=== PATIENT | male | born 1965 | race Caucasian/White ===

== ENCOUNTER 2024-04-10 13:25 | Emergency (ER) | payer MEDICAID, SELFPAY ==
[2024-04-10] VITALS (46 sets, daily range): BP systolic 153–180; BP diastolic 82–139; PULSE 83–96; RESP 16–18; TEMP 36.5–36.8; O2SAT 93–100; BMI 24.8
--- NOTE | 2024-04-10 13:48 | ED_ITS ---
HPI - General Adult General Chief complaint: Unspecified Complaint, Adult Stated complaint: Needs blood transfusion Time Seen by Provider: 04/10/24 13:29 History of Present Illness HPI narrative: presented to ED from clinic. referred for low hgb and swollen feet. 58-year-old man presenting to the emergency department on advice of local clinic following blood work done today showing a hemoglobin of 5.3 reportedly. He does admit to being more fatigued generally for a little while. Not really short of breath than not feeling lightheaded or dizzy. No chest pain. No nausea. Has been experiencing diarrhea though not particularly darkened does not report any hematochezia. Diarrhea is thought to be related to Augmentin that he received for a tooth extraction that was done less than 10 days ago. He has actually stop taking the Augmentin. Diarrhea began fairly quickly after initiating this medication. Does not take any medications otherwise. Has been 12 years prior to today that he had seen a provider beyond the dentist as noted. Reason for going in today was the fatigue but also that he has been having some swelling in his ankles and feet over the last couple of weeks. Leg cramps as well. Due to this he did quit drinking alcohol. Seems indicate that it was not too difficult. He does continue to smoke. Does not report abdominal pain or early satiety. Have just obtained lab work done from clinic today. Looks like the only chemistries that were done was a blood glucose. Looks to have a normocytic anemia with a hemoglobin of 5.2 and hematocrit of 14.7 Related Data Home Medications ?Medication ?Instructions ?Recorded ?Confirmed No Known Home Medications 04/10/24 04/10/24 Allergies Allergy/AdvReac Type Severity Reaction Status Date / Time No Known Drug Allergies Allergy Verified 04/10/24 13:42 Review of Systems Status of ROS: Reports: 6 or more systems reviewed and unremarkable except as noted in History and below [facility] Social History Smoking Status: Current every day smoker Non-prescribed substance use: marijuana (any form) Exam Narrative: Exam Narrative: Pleasant. NAD. Smells of cigarette smoke. Cranial nerves 2-12 intact. No scl eral icterus. Oropharynx is moist. Pale mucous membranes are noted. Extraction site in right upper jaw without inflammatory changes. Heart in regular rate and rhythm maybe a little elevated rate. Lungs trace clearing end- expiratory wheeze crepitus in the upper lung right greater than left. Abdomen is soft and nontender. No masses are appreciated. No fluid wave appreciated. Extremities are well perfused. He transitions to the bed incidentally without any apparent difficulty. Lower extremities with some mild ankle edema noted. Various areas of his skin with small excoriations. Scabbed. Const: Vital Signs, click to edit/add: Vital Signs - 24 hr 04/10/24 13:39 04/10/24 15:21 04/10/24 15:22 Temperature 98.3 F Pulse Rate 88 86 Pulse Rate [Right Pulse Oximeter] 90 Respiratory Rate 18 Blood Pressure 170/105 H Blood Pressure [Ri ght Upper Arm] 153/82 H Pulse Oximetry 98 99 98 O[facility] 04/10/24 15:30 04/10/24 15:32 04/10/24 15:45 Temperature Pulse Rate 83 83 84 Pulse Rate [Right Pulse Oximeter] Respiratory Rate Blood Pressure 164/99 H Blood Pressure [Ri ght Upper Arm] Pulse Oximetry 99 99 99 Oxygen Delivery [facility] 04/10/24 16:02 04/10/24 16:02 04/10/24 16:13 Temperature Pulse Rate 86 Pulse Rate [Right Pulse Oximeter] Respiratory Rate Blood Pressure 170/104 H 170/104 H Blood Pressure [Ri ght Upper Arm] Pulse Oximetry 98 Oxygen Delivery [facility] 04/10/24 16:14 04/10/24 16:15 04/10/24 16:16 Temperature 98.3 F Pulse Rate 86 88 87 Pulse Rate [Right Pulse Oximeter] Respiratory Rate 18 Blood Pressure 170/105 H 170/105 H Blood Pressure [Ri ght Upper Arm] Pulse Oximetry 99 98 Oxygen Delivery Oh thod 04/10/24 16:17 04/10/24 16:18 04/10/24 16:31 Temperature 98.2 F Pulse Rate 89 89 Pulse Rate [Right Pulse Oximeter] Respiratory Rate 16 Blood Pressure 171/91 H 168/104 H Blood Pressure [Ri ght Upper Arm] Pulse Oximetry 99 100 100 Oxygen Delivery [facility] 04/10/24 16:33 Temperature 98.0 F Pulse Rate 84 Pulse Rate [Right Pulse Oximeter] Respiratory Rate 16 Blood Pressure 171/107 H Blood Pressure [Ri ght Upper Arm] Pulse Oximetry 99 Oxygen Delivery [facility] Documenting provider has reviewed patient's vital signs: yes Course Vital Signs Vital signs: Initial Vital Signs Temperature 98.3 F 04/10/24 13:39 Temperature Source Temporal Artery Scan 04/10/24 13:39 Pulse Rate 90 04/10/24 13:39 Respiratory Rate 18 04/10/24 13:39 Blood Pressure 153/82 H 04/10/24 13:39 Blood Pressure Mean 105 04/10/24 13:39 Blood Pressure Position Sitting 04/10/24 13:39 Pulse Oximetry 98 04/10/24 13:39 Oxygen Delivery Method Room Air 04/10/24 13:39 Vital Signs Temperature 98.3 F 04/10/24 13:39 Pulse Rate 90 04/10/24 13:39 Respiratory Rate 18 04/10/24 13:39 Blood Pressure 153/82 H 04/10/24 13:39 Pulse Oximetry 98 04/10/24 13:39 Oxygen Delivery Method Room Air 04/10/24 13:39 Temperature 98.0 F 04/10/24 16:33 Pulse Rate 84 04/10/24 16:33 Respiratory Rate 16 04/10/24 16:33 Blood Pressure 171/107 H 04/10/24 16:33 Pulse Oximetry 99 04/10/24 16:33 Oxygen Delivery Method Room Air 04/10/24 13:39 Medical Decision Making MDM Narrative Medical decision making narrative: Mr. Burciaga is understandably concerned as he is currently without insurance. He would prefer to do outpatient workup after I propose evaluations including imaging of chest abdomen and pelvis here in the emergency department; more prudent in light of smoking and drinking history and lack of cares for many years. Otherwise at a minimum should have colonoscopy. The diarrhea he is describing certainly might be related simply to the caustic/gastrointestinal effects of Augmentin or Clostridium difficile. Will attempt to obtain a stool sample. No chest or abdominal pains and no evidence of active bleeding otherwise suggests against variceal rupture. I would expect this anemia to be of longstanding duration given relatively normal vitals and for this level of hemoglobin, relatively minimal symptoms. No clear source of bleed described. Did inquire about transfusion with the infusion center but will be closing shortly. Hoping to transfer to infusion center or to [facility] for completion of transfusion. I would expect him to need 2 units. Laboratory evaluation however with numerous anomalies most worrisome is evidence of renal failure. I wonder if this was a much more recent development. And that this is potentially going to get worse very quickly. Perhaps was related to the diarrhea? Or at least the diarrhea was the precipitant. I have to think that there was some liver failure playing a role at some point. 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 Hepatorenal syndrome? Toxin related with acute tubular necrosis? Hemolytic uremic syndrome though platelets are normal. I did discuss admitting Mr. Burciaga with our hospitalist; concern expressed of other lingering possibilities without next level imaging prior to admission. I did return to discuss at least non contrasted CT imaging but Mr. Burciaga and his are clear that they wish to only receive the next important treatment, namely blood transfusion, and plan to pursue the rest outpatient after they clarify insurance. He does maintain that is continuing to urinate normally and regularly. And ever since he quit drinking his legs/feet have markedly decreased in swelling now half the size they were before perhaps. I am not sure than that further evaluation is useful including other related laboratory analysis if would not be pursuing further cares at this time. Perhaps would at least obtain a urinalysis with microscopic. They are choosing to leave following transfusion. I did express my concern that this illness is not necessarily on the downswing; that findings of renal failure may accelerate and dialysis may likely be necessary very soon. It would be best not to get to that point if possible with more urgent intervention ideally today. Now receiving 2nd unit of packed red cells. See patient discharge plan for further discussion Medical Records Medical records reviewed: Yes I reviewed the patient's medical records Lab Data Lab results reviewed: Yes I reviewed the patient's lab results Lab results narrative: Further labs in the form of glucose of 96 and CBC with differential from [facility] obtained today. White count was 7.5, hemoglobin 5.2, hematocrit 14.7, MCV 88, MCH 31, MCHC 35.4, RDW 13.9, platelets of 217 Labs: Lab Results 04/10/24 Range/Units 14:30 Hgb 4.6 L* (13.5-17.5) gm/dL INR 1.14 H (0.91-1.10) APTT 34 H (23-33) Seconds Sodium 133 L (135-149) mmol/L Potassium 5.4 H (3.6-5.1) mmol/L Chloride 99 (96-114) mmol/L Carbon Dioxide 10 L (20-32) mmol/L Anion Gap 24 H (7-15) mEq/L BUN 204 H (7-30) mg/dL Creatinine 16.5 H (0.5-1.5) mg/dL Estimated Creat Clear 5.49 Estimated GFR 3 ml/min Glucose 121 H (60-115) mg/dL Calcium 4.7 L* (8.4-10.6) mg/dL Total Bilirubin 0.4 (0.1-1.5) mg/dL Direct Bilirubin 0.4 (0.0-0.5) mg/dL AST 38 H (12-35) U/L ALT 27 (4-50) U/L Alkaline Phosphatase 76 (40-150) U/L Total Protein 7.6 (6.0-8.3) g/dL Albumin 4.8 (3.3-5.0) g/dL Ethyl Alcohol 0.01 (0.01-0.03) % Blood Type O Positive Antibody Screen NEGATIVE Crossmatch (AHG) See Detail Discharge Plan Discharge Clinical Impression: Anemia, Renal failure Patient Disposition: Home w/ Parent or Adult Condition: Stable Additional Instructions: You understand that I would like more intervention for you yet this evening with admission and further monitoring and cares as needed. I am quite concerned that you might worsen quickly. I understand that you have financial concerns and prefer to go home and clarify this before receiving any further cares following these packed red cells. We will try to obtain a follow-up clinic appointment for you within 2 days. If things worsen quickly, increasing difficulty breathing, persistent increasing abdominal pain or swelling, marked increase in swelling in your lower extremi ties, fever, please be seen immediately. Prescriptions: No Action No Known Home Medications Follow Up/Referrals: David Feliciano MD [Primary Care Provider] - Stand Alone Forms: [employer] Info Instructions
[2024-04-10 14:44] LABS: Hemoglobin* 4.6 gm/dL (13.5-17.5)
[2024-04-10 14:56] LABS: Albumin* 4.8 g/dL (3.3-5.0); Chloride* 99 mmol/L (96-114); Potassium* 5.4 mmol/L (3.6-5.1); Sodium* 133 mmol/L (135-149)
[2024-04-10 14:58] LABS: INR 1.14 (0.91-1.10); Prothrombin Time 15.3 Seconds
[2024-04-10 14:59] LABS: Alanine Aminotransferase* 27 U/L (4-50); Alkaline Phosphatase* 76 U/L (40-150); Anion Gap 24 mEq/L (7-15); Aspartate Amino Transferase* 38 U/L (12-35); Bilirubin Direct* 0.4 mg/dL (0.0-0.5); Bilirubin Total* 0.4 mg/dL (0.1-1.5); Carbon Dioxide* 10 mmol/L (20-32); Glucose* 121 mg/dL (60-115); Partial Thromboplastin Time* 34 Seconds (23-33); Total Protein* 7.6 g/dL (6.0-8.3)
[2024-04-10 15:08] LABS: Blood Urea Nitrogen* 204 mg/dL (7-30); Creatinine* 16.5 mg/dL (0.5-1.5); Est. Creatinine Clearance* 5.49; Estimated Glomerular Filt Rate 3 ml/min
[2024-04-10 15:09] LABS: Calcium* 4.7 mg/dL (8.4-10.6)
[2024-04-10 16:44] LABS: Ethanol* 0.01 % (0.01-0.03)
== END 2024-04-10 19:45 | disposition home or self-care (01) ==
PROVIDERS: Emergency Provider Family Medicine; PCP Family Medicine
DX: D64.9 Anemia, unspecified (principal); N19 Unspecified kidney failure
CPT/HCPCS: 36415; 36430; 80048; 80076; 81001; 82077; 85018; 85610; 85730; 86850; 86900; 86901; 86922; 87493; 99284; P9016

== ENCOUNTER 2024-04-12 16:27 | Outpatient (CLI) | payer MEDICAID, SELFPAY | END 2024-04-12 16:28 | disposition home or self-care (01) | LOC: NFLDREF 16:29 | PROVIDERS: PCP Internal Medicine; Visit Provider Internal Medicine | DX: N19 Unspecified kidney failure (principal) | CPT/HCPCS: 80053 ==